=== PATIENT | male | born 1960 | race Caucasian/White ===

== ENCOUNTER 2020-03-30 00:36 | Outpatient (CLI) | payer BC, SELFPAY ==
[2020-03-30 18:12] LABS: SARS-CoV-2 RNA PCR Negative
== END 2020-03-30 00:37 | disposition home or self-care (01) ==
LOC: ANHCOVIDDT 00:36
PROVIDERS: PCP Family Medicine; Visit Provider Internal Medicine Gastroenterology
DX: Z20.828 Contact with and (suspected) exposure to other viral communicable diseases (principal); Z01.812 Encounter for preprocedural laboratory examination
CPT/HCPCS: 87635; C9803; U0003

== ENCOUNTER 2020-04-01 02:05 | Day surgery (SDC) | payer BC, SELFPAY ==
[2020-03-26 14:17] VITALS: BMI 34.5
[2020-04-01 06:52] VITALS: BMI 36.8
[2020-04-01 07:00] VITALS: BP 139/91; PULSE 82; RESP 14; TEMP 36.4; O2SAT 96
[2020-04-01] MEDS: LACTATED RINGERS 1,000 ML 150 ML IV CONT (07:12)
--- NOTE | 2020-04-01 07:26 | PM.IMHP ---
H&P: HPI History of Present Illness Chief complaint: Neoplasm Screening Narrative: Reason for visit colonoscopy. Is for pleasant gentleman is being evaluated at the request of the primary physician. Impression: Screening and surveillance colonoscopy. The patient has history colon polyps and family history colorectal cancer. Per past medical history. Recommendation: Colonoscopy. History: Very pleasant gentleman is negative GI review systems. He is here for screening and surveillance colonoscopy. He has a history colon polyps and family history colorectal cancer. Physical examination: General: very pleasant patient in no acute distress. HEENT: Head was normocephalic sclerae is clear mouth without masses neck was supple. Heart: Rate rhythm regular without S3 or S4. Lungs: CTA. Abdomen: Soft with no guarding or rigidity. Bowel sounds were active. Neurologic: Cranial nerves 2 through 12 intact. No focal defects. No clonus. Musculoskeletal system: Revealed no joint tenderness or swelling no muscle atrophy. Extremities: Reveal no significant edema. Skin: Warm and dry with normal turgor. Mental status: intact. Patient is alert and oriented. Review of Systems Review of Systems: All systems reviewed & are unremarkable except as noted in HPI and below PMFSH Past Medical History Medical History (Updated 04/01/20 @ 07:25 by Rufus Gee DO) Adenomatous colon polyp Anxiety HLD (hyperlipidemia) Obesity Surgical History Surgical History (Updated 04/01/20 @ 07:25 by Rufus Gee DO) H/O colonoscopy H/O hernia repair H/O total hip arthroplasty Bilateral Family History Family History (Updated 04/01/20 @ 07:26 by Rufus Gee DO) Father Carcinoma of colon Other Family history of arthritis Social History Social History (Updated 04/01/20 @ 07:25 by Rufus Gee DO) Smoking packs per day: 1 Smoking cigarettes per day: 20.0 Years smoked: 30 Smoking pack-years: 30.00 Alcohol intake: current Meds Home Medications and Allergies Home Medications Medication Instructions Recorded Confirmed Type acyclovir 800 mg PO DAILY 03/26/20 04/01/20 History celecoxib 200 mg PO DAILY 03/26/20 04/01/20 History clonazepam 1 mg PO DAILY 03/26/20 04/01/20 History rosuvastatin 10 mg PO DAILY 03/26/20 04/01/20 History Allergies Allergy/AdvReac Type Severity Reaction Status Date / Time No Known Allergies Allergy Verified 04/01/20 06:57 Vital Signs Vital Signs - 24 hr 04/01/20 07:00 Temperature 36.4 C Pulse Rate 82 Respiratory Rate 14 Blood Pressure 139/91 H Pulse Oximetry 96
--- NOTE | 2020-04-01 07:55 | WPDANESEPPF ---
Anes - Initial Pre Proc Eval Procedure: Operation Date: 04/01/20 08:00 Proposed Procedures p Screening Colonoscopy - Rufus Gee DO Date/Time: 04/01/20 07:55 Surgeon: Rufus Gee DO Pre Op Diagnosis: Neoplasm Screening Patient Data Age: 59 Gender: M Height: 6 ft 1 in Weight: 126.8 kg Last Vital Signs Temp 97.6 F 04/01/20 07:00 Pulse 82 04/01/20 07:00 Resp 14 04/01/20 07:00 BP 139/91 H 04/01/20 07:00 Pulse Ox 96 04/01/20 07:00 Allergies Allergy/AdvReac Type Severity Reaction Status Date / Time No Known Allergies Allergy Verified 04/01/20 06:57 Home Medications Medication Instructions Recorded Confirmed Type acyclovir 800 mg PO DAILY 03/26/20 04/01/20 History celecoxib 200 mg PO DAILY 03/26/20 04/01/20 History clonazepam 1 mg PO DAILY 03/26/20 04/01/20 History rosuvastatin 10 mg PO DAILY 03/26/20 04/01/20 History Patient hx anesthesia problems: none Family hx anesthesia problems: none PMFSH Past Medical History Medical History (Updated 04/01/20 @ 07:25 by Rufus Gee DO) Adenomatous colon polyp Anxiety HLD (hyperlipidemia) Obesity Surgical History Surgical History (Updated 04/01/20 @ 07:25 by Rufus Gee DO) H/O colonoscopy H/O hernia repair H/O total hip arthroplasty Bilateral Family History Family History (Updated 04/01/20 @ 07:26 by Rufus Gee DO) Father Carcinoma of colon Other Family history of arthritis Social History Social History (Updated 04/01/20 @ 07:25 by Rufus Gee DO) Smoking packs per day: 1 Smoking cigarettes per day: 20.0 Years smoked: 30 Smoking pack-years: 30.00 Alcohol intake: current Anes - Eval Final PreProcedure Day of Procedure 04/01/20 07:55 Patient weight: obese Heart: regular rate and rhythm Lungs: clear to auscultation Airway: Mallampati scale class III Neurological: alert and oriented Last oral intake: >/= 8 hours ASA classification: III Emergent: no Anesthetic plan: proceed Anesthesia type and monitoring: general GIVS and standard monitoring Informed Consent: The patient's anesthetic plan and its attendant risks and benefits were discussed with the patient/family/POA. Questions were solicited and answers provided to the satisfaction of the patient/family/POA.
[2020-04-01 08:28] VITALS: BP 123/67; PULSE 66; RESP 25; O2SAT 100
[2020-04-01 08:38] VITALS: BP 120/82; PULSE 73; RESP 19; O2SAT 100
[2020-04-01 08:48] VITALS: BP 122/87; PULSE 70; RESP 18; O2SAT 70
== END 2020-04-01 09:07 | disposition home or self-care (01) ==
PROVIDERS: PCP Family Medicine; Visit Provider Internal Medicine Gastroenterology
PROC: 0DJD8ZZ Inspection of Lower Intestinal Tract, Via Natural or Artificial Opening Endoscopic (ICD-10-PCS; CPT 45378; principal; 2020-04-01 08:00)
DX: Z12.11 Encounter for screening for malignant neoplasm of colon (principal); D12.3 Benign neoplasm of transverse colon; K57.30 Diverticulosis of large intestine without perforation or abscess without bleeding; K64.8 Other hemorrhoids; E78.5 Hyperlipidemia, unspecified; F41.9 Anxiety disorder, unspecified; E66.9 Obesity, unspecified; Z68.36 Body mass index [BMI] 36.0-36.9, adult; F17.210 Nicotine dependence, cigarettes, uncomplicated
CPT/HCPCS: 45380; 88305; J2704; J7120

== ENCOUNTER 2023-09-11 20:00 | Emergency (ER) | payer BC, SELFPAY ==
[2023-09-11] VITALS (8 sets, daily range): BP systolic 122–153; BP diastolic 73–98; PULSE 80–123; RESP 11–16; TEMP 36.6; O2SAT 94–99
--- NOTE | ~2023-09-11 | XR_ITS ---
EXAMINATION: XR chest 2V Exam Date/Time: 09/11/2023 20:25 LOGISTICS LOSS PREVENTION MANAGER HISTORY: cp Comparison: 12/15/2016. RESULT: Lines, tubes, and devices: None. Lungs and pleura: Clear. Cardiomediastinal silhouette: Stable. Other: No acute osseous or upper abdominal finding. IMPRESSION: No acute cardiopulmonary process. Reviewed, dictated and finalized at location K. STICS LOSS PREVENTION MANAGER
--- NOTE | 2023-09-11 20:01 | ECG_ITS ---
Measurements Intervals [place] Rate: 120 P: AL: 0 QRS: -19 QRSD: 75 T: 6 QT: 295 QTc: 418 Interpretive Statements ATRIAL FIBRILLATION WITH RAPID VENTRICULAR RESPONSE CONSIDER INFERIOR INFARCT, AGE INDETERMINATE BASELINE ARTIFACT- I, III, AVR, AVL, AVF, V1 ABNORMAL ECG NO PREVIOUS ECG AVAILABLE FOR COMPARISON Electronically Signed On 09-12-2023 6:18:32 BULK TRUCK DRIVER by Babar Larson D.O.
[2023-09-11 20:23] LABS: Basophils Absolute Auto 0.1 K/mm3 (0.0-0.1); Basophils Percent Auto 0.8 % (0.2-1.2); Eosinophils Absolute Auto 0.2 K/mm3 (0-0.3); Eosinophils Percent Auto 1.3 % (0-4.4); Hematocrit 48.7 % (42.0-52.0); Hemoglobin 16.7 g/dL (14.0-18.0); Immature Granulocyte Absolute 0.27 K/mm3 (0.00-0.031); Immature Granulocyte Percent A 2.2 % (0-0.5); Lymphocytes Absolute Auto 3.45 K/mm3 (0.9-3.2); Mean Corpuscular HGB Conc 34.3 g/dl (32-36); Mean Corpuscular Hemoglobin 30.9 pg (26-34); Mean Platelet Volume 8.7 fl (7.4-10.4); Monocytes Absolute Auto 1.2 K/mm3 (0.1-0.6); Monocytes Percent Auto 9.7 % (2.6-8.5); Neutrophils Absolute Auto 7.2 K/mm3 (1.3-6.7); Platelet Count Result 330 k/mm3 (150-375); Red Blood Count 5.41 M/mm3 (4.6-6.20); Red Cell Distribution Width 12.7 % (11.5-14.5); White Blood Count 12.3 K/mm3 (4.5-10.0)
[2023-09-11 20:33] LABS: Alanine Aminotransferase 50 U/L (6-50); Alkaline Phosphatase 80 U/L (38-126); Anion Gap 13 mmol/L (8-16); Aspartate Amino Transferase 36 U/L (17-59); Bilirubin,Total 0.5 mg/dL (0.2-1.3); Blood Urea Nitrogen 14 mg/dL (9-20); Calcium 9.6 mg/dL (8.4-10.2); Carbon Dioxide 22 mmol/L (22-30); Chloride 108 mmol/L (98-107); Estimated CRCL calculation 98 ml/min; Estimated Glomerular Filt Rate > 60; Glucose 95 mg/dL (65-110); Lipase 104 U/L (23-300); Sodium 143 mmol/L (137-145)
[2023-09-11 20:44] LABS: Troponin I < 0.012 ng/mL (0.000-0.034)
[2023-09-11 20:53] LABS: Partial Thromboplastin Time 25.4 SECONDS (22.3-36.8); Prothrombin Time 13.9 Seconds (11.1-14.7)
--- NOTE | 2023-09-11 22:32 | ECG_ITS ---
Measurements Intervals [place] Rate: 84 P: 29 WA: 166 QRS: -15 QRSD: 81 T: 62 QT: 355 QTc: 421 Interpretive Statements SINUS RHYTHM EARLY PRECORDIAL R/S TRANSITION INFERIOR INFARCT, AGE INDETERMINATE BORDERLINE T WAVE ABNORMALITY- HIGH LATERAL LEADS BASELINE ARTIFACT- AVL ABNORMAL ECG COMPARED TO ECG 09/11/2023 20:07:45 SINUS RHYTHM NOW PRESENT Electronically Signed On 09-12-2023 6:23:11 PLASTICS SUPERVISOR by Babar Larson D.O.
[2023-09-11] MEDS: ASPIRIN 81 MG CHEWABLE TABLET 324 MG PO (23:00)
--- NOTE | 2023-09-11 23:28 | PC.NURSE ---
care and report given to ADOLFO Jimenez. all questions answered.
[2023-09-11 23:46] LABS: Magnesium 2.5 mg/dL (1.6-2.3)
[2023-09-11 23:59] LABS: Troponin I < 0.012 ng/mL (0.000-0.034)
--- NOTE | 2023-09-12 00:25 | ED.GENADULT ---
HPI - General Adult General Chief complaint: Arrhythmia/Palpitations Stated complaint: palpations Time Seen by Provider: 09/11/23 22:14 History of Present Illness HPI narrative: Patient 62-year-old gentleman presents emerged for which she complained of chest discomfort and heart racing. The patient states that earlier this evening he had some stressful events that occurred in his life he noticed that his heart was beating between 100 and 120 the patient does report that recently he has had some medications from his [employer] watch that is said that he has been in atrial fibrillation and reports earlier today his [employer] watch was saying that he was in atrial fibrillation. Patient denies syncope he does report that his symptoms have been worsened whenever he stands up. Patient reports no diarrhea Related Data Home Medications Medication Instructions Recorded Confirmed rosuvastatin 10 mg tablet 10 mg PO DAILY 03/26/20 06/13/21 tamsulosin 0.4 mg capsule 0.4 mg PO DAILY 06/03/21 06/13/21 clonazepam 1 mg tablet 1 mg PO BID 07/26/23 naproxen 500 mg tablet 500 mg PO BID 07/26/23 Allergies Allergy/AdvReac Type Severity Reaction Status Date / Time No Known Allergies Allergy Verified 07/26/23 14:15 Review of Systems Review of Systems: A 10 system review of systems was completed on the patient and is negative except for what is stated in the HPI. Nursing and ancillary documentation was reviewed. [facility] Past Medical History Medical History Adenomatous colon polyp Anxiety Cold sore COPD (chronic obstructive pulmonary disease) HLD (hyperlipidemia) Obesity Surgical History Surgical History H/O colonoscopy H/O hernia repair H/O total hip arthroplasty Bilateral Family History Family History Father Carcinoma of colon Parkinsons CHF (congestive heart failure) MA (myocardial infarction) Mother Arthritis Hypertension Sibling Liver disease Unknown Heart disease Cancer Other Family history of arthritis Social History Social History Smoking packs per day: 1 Smoking cigarettes per day: 20.0 Years smoked: 30 Smoking pack-years: 30.00 Smoking status: Former smoker Tobacco type: cigarettes Alcohol intake: current Drinks per week: 6 Alcohol use details: vodka Lack of Transportation: No Lack of Food: Never True Current Housing: I Have Housing Concerned About Future Housing: No Difficulty Paying Gas/Electric Bills: No Difficulty Paying for Meds: No Currently Unemployed: No Education: Master's Degree or Higher Difficulty w/ Childcare or Family Care: No Exam Narrative: GENERAL: Well-appearing, well-nourished, and in no acute distress. HEAD: Normocephalic, atraumatic. EYES: PERRLA and EOMI. ENT: Nares clear, no rhinorrhea or epistaxis. Mucous membranes moist. NECK: Supple. CHEST: Clear to auscultation. No respiratory distress. HEART: Regular rate and rhythm. No murmur heard. Normal peripheral pulses. ABDOMEN: Soft, nontender, nondistended, normal active bowel sounds. EXTREMITIES: Normal range of motion. No edema. SKIN: Warm, dry, no rash. NEURO: No focal deficits. Alert and oriented x3. PSYCH: Normal mood and affect. Course Vital Signs Vital signs: Vital Signs Temperature 36.6 C 09/11/23 20:11 Pulse Rate 123 H 09/11/23 20:11 Respiratory Rate 16 09/11/23 20:11 Blood Pressure 153/73 H 09/11/23 20:11 Pulse Oximetry 94 09/11/23 20:11 Temperature 36.6 C 09/11/23 20:11 Pulse Rate 89 09/11/23 23:29 Respiratory Rate 13 09/11/23 23:29 Blood Pressure 137/92 H 09/11/23 23:29 Pulse Oximetry 99 09/11/23 23:29 Medical Decision Making [facility] Narrative Medical decision making n[place]
[2023-09-12 00:53] VITALS: BP 131/85; PULSE 82; RESP 14; O2SAT 98
[2023-09-12 00:54] VITALS: PULSE 82
[2023-09-12] MEDS: METOPROLOL SUCCINATE EXT REL 25 MG TABCR PO (00:54)
[2023-09-12 01:33] VITALS: BP 131/93; PULSE 99; RESP 18; O2SAT 99
== END 2023-09-12 01:34 | disposition home or self-care (01) ==
PROVIDERS: Emergency Provider Emergency Medicine; PCP Family Medicine
DX: I48.91 Unspecified atrial fibrillation (principal); F41.9 Anxiety disorder, unspecified; J44.9 Chronic obstructive pulmonary disease, unspecified; E78.5 Hyperlipidemia, unspecified
CPT/HCPCS: 36415; 71046; 80053; 83690; 83735; 84484; 85025; 85610; 85730; 93005; 99284; A9270

== ENCOUNTER 2024-03-13 11:46 | Outpatient (CLI) | payer MEDICARE, SELFPAY ==
[2024-03-13 13:28] LABS: Basophils Absolute Auto 0.1 K/mm3 (0.0-0.1); Basophils Percent Auto 0.7 % (0.2-1.2); Eosinophils Absolute Auto 0.1 K/mm3 (0-0.3); Eosinophils Percent Auto 0.8 % (0-4.4); Hemoglobin 15.4 g/dL (14.0-18.0); Immature Granulocyte Absolute 0.11 K/mm3 (0.00-0.031); Lymphocytes Absolute Auto 2.65 K/mm3 (0.9-3.2); Lymphocytes Percent Auto 24.8 % (18.3-44.2); Mean Corpuscular HGB Conc 33.5 g/dl (32-36); Mean Corpuscular Hemoglobin 30.9 pg (26-34); Mean Corpuscular Volume 92.2 fl (80-100); Mean Platelet Volume 9.5 fl (7.4-10.4); Monocytes Absolute Auto 0.9 K/mm3 (0.1-0.6); Monocytes Percent Auto 8.6 % (2.6-8.5); Neutrophils Absolute Auto 6.8 K/mm3 (1.3-6.7); Neutrophils Percent Auto 64.1 % (45.5-73.1); Platelet Count Result 273 k/mm3 (150-375); Red Blood Count 4.99 M/mm3 (4.6-6.20); Red Cell Distribution Width 12.9 % (11.5-14.5); White Blood Count 10.7 K/mm3 (4.5-10.0)
[2024-03-13 13:43] LABS: Alanine Aminotransferase 30 U/L (6-50); Albumin Level 4.5 g/dL (3.5-5.1); Alkaline Phosphatase 75 U/L (38-126); Anion Gap 6 mmol/L (4-12); Aspartate Amino Transferase 44 U/L (17-59); Bilirubin,Total 0.7 mg/dL (0.2-1.3); Blood Urea Nitrogen 18 mg/dL (9-20); Calcium 9.7 mg/dL (8.4-10.2); Carbon Dioxide 25 mmol/L (22-30); Chloride 108 mmol/L (98-107); Cholesterol 108 mg/dL (0-200); Estimated Glomerular Filt Rate > 60; Glucose 106 mg/dL (65-110); HDL Direct 43 mg/dL; Potassium 4.2 mmol/L (3.4-5.0); Sodium 139 mmol/L (137-145); Triglycerides 145 mg/dL (<150)
[2024-03-13 13:55] LABS: LDL Cholesterol Direct 57 mg/dL
[2024-03-13 14:12] LABS: Prostate Specific Antigen 0.8 ng/mL (< OR = 4.0)
== END 2024-03-13 11:47 | disposition home or self-care (01) ==
LOC: ANHGOSHLAB 11:48
PROVIDERS: PCP Emergency Medicine; Visit Provider Emergency Medicine
DX: Z12.5 Encounter for screening for malignant neoplasm of prostate (principal); E78.5 Hyperlipidemia, unspecified
CPT/HCPCS: 36415; 80053; 80061; 84153; 84443; 85025; G0103

== ENCOUNTER 2024-03-17 15:34 | Outpatient (CLI) | payer MEDICARE, SELFPAY ==
--- NOTE | ~2024-03-17 | CT_ITS ---
CT Scan of the Chest without Contrast: Clinical Indication: Lung cancer screening, nicotine dependence Technique: Contiguous sections were acquired throughout the chest without intravenous contrast. Dose reduction technique was used on this scan by utilizing automated exposure control and iterative recon struction technique. The dose-length product (DLP) was 291.78 mGy-cm. Findings: There is no evidence of any significant mediastinal, hilar or axillary lymphadenopathy. The mediastin al soft tissues appear normal. There is no evidence of pleural or pericardial effusion. The lungs are clear. No pulmonary nodules or infiltrates are noted. Images through the upper abdomen reveal no abnormalities. Impression: Lung RADS 1: Negative. 12 month follow-up screening CT advised. Reviewed, dictated and finalized at location . Impression: Lung RADS 1: Negative. 12 month follow-up screening CT advised.
== END 2024-03-17 15:35 | disposition home or self-care (01) ==
LOC: ANHIMG 15:35
PROVIDERS: PCP Emergency Medicine; Visit Provider Emergency Medicine
DX: Z12.2 Encounter for screening for malignant neoplasm of respiratory organs (principal); Z87.891 Personal history of nicotine dependence
CPT/HCPCS: 71271

== ENCOUNTER 2024-04-05 07:27 | Outpatient (CLI) | payer MEDICARE, SELFPAY ==
--- NOTE | ~2024-04-05 | MR_ITS ---
EXAMINATION: MR knee LT wo con DATE: 04/05/2024 08:12 INDICATION: Medial left knee pain and swelling TECHNIQUE: Magnetic resonance imaging (MRI) of the left knee was performed without intravenous contra st. Sequences included coronal PD-weighted FSE, coronal PD-weighted FS FSE, sagittal T2-weighted FSE , sagittal PD-weighted FS FSE and axial PD weighted fat saturated FSE. COMPARISON: None. FINDINGS: Medial compartment: There is medial extrusion of the medial meniscal body with 7 mm separation at the margins of a full-t hickness radial tear extending across the posterior horn . There is subarticular edema-like signal ch dion underlying a 13 x 10 mm region of full or near full-thickness chondral ulceration at the medial aspect of the medial tibial plateau. There is additional deep chondral fissuring with irregular conto ur to the minimal relative thinning cartilage along the medial two thirds of the anterior weightbeari ng medial femoral condyle with additional underlying subarticular edema-like signal change. Additiona l chondral ulceration involving greater than 50% the cartilage thickness but without degenerative sub chondral changes at the central to posterior weightbearing medial femoral condyle. Lateral compartment: Lateral meniscus is normal. Partial-thickness chondral fissure at the medial aspect of the lateral ti bial plateau along the shoulder the intercondylar eminence. Cartilage along the weightbearing lateral femoral condyle is normal. Patellofemoral compartment: Partial-thickness chondral fissuring without degenerative subchondral changes along the caudal third of the patellar apical ridge and lateral facet. Additional shallow chondral fissure at the central as pect of the medial patellar facet. Trochlear cartilage is normal. Ligaments and tendons: Anterior and posterior cruciate ligaments are normal. The medial collateral ligament and fibular sid ateral ligament complex are normal. The extensor mechanism is normal. The visualized medial and later al hamstring tendons as well as the iliotibial band are normal. Fluid: Moderate-sized knee joint effusion. 7 x 4 x 4 mm loose body anterior to the intercondylar notch along the medial side of the transverse ligament. Osseous/other: Bone alignment is normal. No fracture or pathologic marrow replacing process. IMPRESSION: 1. Full-thickness radial tear at the posterior horn of the medial meniscus. 2. Moderate osteoarthritis with prominent high-grade chondromalacia at the medial compartment and mil d osteoarthritis with small regions of moderate grade chondromalacia in the lateral and patellofemora l compartments. 3. Moderate sized knee joint effusion with small loose body anterior to the intercondylar notch along the transverse ligament. Reviewed, dictated and finalized at location A. IMPRESSION: 1. Full-thickness radial tear at the posterior horn of the medial meniscus. 2. Moderate osteoarthritis with prominent high-grade chondromalacia at the medi al compartment and mild osteoarthritis with small regions of moderate grade cho ndromalacia in the lateral and patellofemoral compartments. 3. Moderate sized knee joint effusion with small loose body anterior to the int ercondylar notch along the transverse ligament.
== END 2024-04-05 07:28 ==
LOC: MICIMG 07:28
PROVIDERS: PCP Emergency Medicine; Visit Provider Orthopaedic Surgery
DX: M23.322 Other meniscus derangements, posterior horn of medial meniscus, left knee (principal); M17.12 Unilateral primary osteoarthritis, left knee; M94.262 Chondromalacia, left knee; M25.462 Effusion, left knee; M23.42 Loose body in knee, left knee
CPT/HCPCS: 73721

== ENCOUNTER 2024-04-23 09:37 | Outpatient (CLI) | payer MEDICARE, SELFPAY ==
--- NOTE | ~2024-04-23 | CT_ITS ---
EXAMINATION: CT sinus wo con DATE: 04/23/2024 09:45 INDICATION: Sinusitis TECHNIQUE: Computed tomography (CT) of the paranasal sinuses was performed without intravenous contra st. The dose-length product was 401.69 mGy-cm. Automated exposure control and iterative reconstructio n technique were employed. COMPARISON: CT dated 09/04/2011 FINDINGS: There is mild mucosal thickening of the maxillary, ethmoid and right frontal sinuses. There are small mucous retention cyst of the sphenoid sinuses. No air-fluid levels. No significant nasal s eptal deviation. Mastoids are pneumatized. IMPRESSION: 1. Mild sinus disease. Reviewed, dictated and finalized at location B. IMPRESSION: 1. Mild sinus disease.
--- NOTE | ~2024-04-23 | US_ITS ---
US soft tissue abdomen Ordering provider: Parviz Payton History: . K42.9 - Umbilical hernia without obstruction or gangrene . Comparison: None. Technique: Soft tissue abdomen ultrasound. (Doppler ultrasound interrogation techniques used as neede d for this exam.) FINDINGS impression: Small slightly echogenic mass is seen in the umbilical area measuring 0.4 x 0.4 x 0.6 cm. Possibility of tiny hernia with fat content cannot be excluded. Follow-up advised. Reviewed, dictated and finalized at location A.
== END 2024-04-23 09:38 ==
LOC: GOSHIMG 09:38
PROVIDERS: PCP Emergency Medicine; Visit Provider Emergency Medicine
DX: J32.9 Chronic sinusitis, unspecified (principal); K42.9 Umbilical hernia without obstruction or gangrene
CPT/HCPCS: 70486; 76705

== ENCOUNTER 2024-11-11 07:56 | Outpatient (CLI) | payer MEDICARE, SELFPAY ==
--- OUTSIDE RECORDS SUMMARY | 2024-11-11 08:04 | XMS_ITS | Clinical Summary ---
Author Organization [facility] [place] [address] Address [address] [place] [address] Care Team Providers Care Interchange Agent Name Role Phone Parviz Payton MD Primary Care Provider [phone] Allergies No known active allergies Medications rosuvastatin (CRESTOR) 10 mg tabletIndicati ons:hyperlipid emia Take 1 tablet (10 mg total) by mouth nightly 10/10/20 23 Active tamsulosin (FLOMAX) 0.4 mg extended release capsuleIndicat ions:benign prostatic hyperplasia with lower urinary tract sx Take 1 capsule (0.4 mg total) by mouth nightly 09/11/20 23 Active aspirin 81 mg enteric coated tabletIndicati ons:prevention of thrombosis Take 1 tablet (81 mg total) by mouth nightly Active MULTIVITAMIN ORALIndication s:supplent Take 1 tablet/capsul e by mouth nightly Active omega-3 fatty acids-fish oil 300-1,000 mg capsuleIndicat ions:supplemen t Take 2 capsules (2 g total) by mouth nightly Active HYDROcodone-ac etaminophen (NORCO) 5-325 mg per tabletIndicati ons:Pain Take 1 tablet by mouth every 6 (six) hours as needed for pain for up to 15 doses 15 tablet 08/20/20 24 Active sodium chloride (OCEAN) 0.65 % nasal spray Administer 1 spray into each nostril as needed for rhinitis 15 mL 08/20/20 24 025 Active pramipexole (MIRAPEX) 0.5 mg tabletIndicati ons:Restless Legs Syndrome Take 1 tablet (0.5 mg total) by mouth nightly 90 tablet 1 09/01/20 24 Active metoprolol XL (TOPROL-XL) 25 mg extended release tablet Take 1 tablet by mouth once daily 90 tablet 2 09/09/20 24 Active zolpidem (AMBIEN) 5 mg tablet TAKE 1 TABLET BY MOUTH NIGHTLY NEEDED FOR SLEEP 30 tablet 5 09/16/20 24 Active ergocalciferol (VITAMIN D) 50,000 unit capsule Take 1 capsule by mouth once a week 4 capsule 11/10/19 25 Active ergocalciferol (VITAMIN D) 50,000 unit capsule Take 1 capsule by mouth once a week 4 capsule 09/19/20 24 024 Discontinued(Re order) ergocalciferol (VITAMIN D) 50,000 unit capsule Take 1 capsule by mouth once a week 4 capsule 10/14/20 24 025 Discontinued Active Problems Problem Noted Date Diagnosed Date Hypertrophy of both inferior nasal turbinates Nasal valve stenosis 07/03/2024 Periodic limb movement disorder 03/20/2024 Restless legs syndrome 03/20/2024 Psychophysiological insomnia 03/20/2024 Obesity (BMI 35.0-39.9 without comorbidity) 01/2024 MAGAN (obstructive sleep apnea) 10/18/2023 Stress 10/18/2023 PAF (paroxysmal atrial fibrillation) ([facility]) 0 10/18/2023 Hypertrophy of breast 02/28/2014 Overview (01/17/2017): HYPERTROPHY OF BREAST Encounters Date Type Department Care Team Description 10/28/2024 4:30 PM CLERGY MEMBER Office Visit [facility]) - [facility] E[facility] [address] [facility] Medical Office Building [address] [place] [address] Bettye Torres MD S/P nasal surgery (Primary Dx); MAGAN (obstructive sleep apnea); Impacted cerumen of both ears 09/04/2024 10:00 AM CLERGY MEMBER [facility] - [facility] ENT [address] [facility] 11th [place] [address] [place] [address] Bettye Torres MD S/P nasal surgery (Primary Dx); MAGAN (obstructive sleep apnea); Psychophysiological insomnia; Nasal valve stenosis 09/04/2024 Telephone [facility] ([facility]) - [facility] ENT [address] [facility] Advanced [facility] 11th [place] [address] [place] [phone] Antoinette Isbell MS 08/20/2024 3:50 PM CLERGY MEMBER - 08/20/2024 5:25 PM CLERGY MEMBER Surgery [facility] [address] [place] [address] Bettye Torres MD REPAIR NASAL VALVE 08/20/2024 2:37 PM CLERGY MEMBER Anesthesia Event [facility] ([facility]) [address] [place] [address] Anish Ness MD DDS Dulle, Alison Renee, SIS 08/20/2024 1:15 PM CLERGY MEMBER - 08/20/2024 4:55 PM CLERGY MEMBER Hospital Encounter [facility] ([facility]) [address] [place] [address] Bettye Torres MD Hypertrophy of both inferior nasal turbinates (Primary Dx); Nasal valve stenosis Discharge Disposition: Discharge to home or self care from Last 3 Months Surgical History Surgery Date Site/Laterality Comments UMBILICAL HERNIA REPAIR 2010 Hernia repair HIP ARTHROPLASTY 04/14/2014 - 05/14/2014 Right CARPAL TUNNEL RELEASE 10/15/2022 - 10/14/2023 Right HIP ARTHROPLASTY 09/14/2014 - 10/14/2014 Left Medical History Medical History Date Comments Hyperlipidemia Hyperlipidemia Hx Other Medical MAGAN ( ? ) Hx Other Medical restless leg sy ndrome Family History Medical History Relation Name Comments Hypertension Father Hypertension; Parkinsonism Father Atrial fibrillation Mother Cancer Mother Liver disease Sister Relation Name Status Comments Father Mother Sister Social History Tobacco Use Types Packs/Day Years Used Date Smoking Tobacco: Former Cigarettes - 2010 Passive Smoke Exposure: Past Tobacco Cessation:Counseling Given: Not Answered Alcohol Use Standard Drinks/Week Comments No 0 (1 standard drink = 0.6 oz pur e alcohol) AUDIT-C Answer Date Recorded Q1: How often do you have a drink containing alc ohol? 2-3 times a week 08/20/2024 Q2: How many drinks containi ng alcohol do you have on a typical day when you are drinking? 1 or 2 08/20/2024 Q3: How often do you have si x or more drinks on one occasion? Never 08/20/2024 Personal Safety Answer Date Recorded Have you ever been in or are you currently in a harmful physical or emotional relationship or is someone making you feel afraid or unsafe? Denies 08/20/2024 Sex and Gender Information Value Date Recorded Sex Assigned at Not on file Legal Sex Male 10:23 AM CLERGY MEMBER Gender Identity Not on file Sexual Orientation Not on file Obstetrics History Last Filed Vital Signs Vital Sign Reading Time Taken Comments Blood Pressure 135/78 08/20/2024 4:40 PM CLERGY MEMBER Pulse 66 08/20/2024 4:40 PM CLERGY MEMBER Temperature 36.2 ??C (97.2 ??F) 08/20/2024 4:00 PM CS T Respiratory Rate 15 08/20/2024 4:40 PM CLERGY MEMBER Oxygen Saturation 96% 08/20/2024 4:40 PM CLERGY MEMBER Inhaled Oxygen Concentration - - Weight 124.7 kg (275 lb) 10/28/2024 4:21 PM CLERGY MEMBER Height 188 cm (6' 2 ) 10/28/2024 4:21 PM CLERGY MEMBER Body Mass Index 35.31 10/28/2024 4:21 PM CLERGY MEMBER Plan of Treatment Health Maintenance Due Date Last Done Comments Colon Cancer Screening-Colonoscopy 1958 Depression Screening 1958 Hepatitis C Screening 1958 Prostate Cancer Screening-PSA 1958 DTaP/Tdap/Td Vaccine (1 - Tdap) 1969 Hepatitis B Screening 1976 Lung Cancer Screening 2008 Zoster Vaccine (1 of 2) 2008 Abdominal Aortic Aneurysm (AAA) Screen 2023 Pneumococcal vaccine 65+ (1 of 1 - PCV) 2023 Well Visit 65+ 2023 Covid-19 Vaccine (3 - season) 06/15/202402/2022, 07/29/2021 Influenza Vaccine (#1) 2024 08/03/2022, 2020 Fall Risk Assessment 08/20/2025 08/20/2024 Procedures Procedure Name Priority Date/Time Associated Diagnosis Comments ANESTHESIA INTUBATION Routine 08/20/2024 3:06 PM CLERGY MEMBER REDUCTION INFERIOR TURBINATE 08/20/2024 2:36 PM CLERGY MEMBER MAGAN (obstructive sleep apnea) Nasal valve stenosis Special Needs DR TORRES HAS REQUESTED 30 MINS FOR CASE/2 WEEK POST OP/NEEDS SINUS SCOPES AND VIVAER-REP REPAIR NASAL VALVE 08/20/2024 2: 36 PM CLERGY MEMBER MAGAN (obstructive sleep apnea) Nasal valve stenosis Special Needs DR TORRES HAS REQUESTED 30 MINS FOR CASE/2 WEEK POST OP/NEEDS SINUS SCOPES AND VIVAER-REP from Last 3 Months Results * Airway (08/20/2024 3:06 PM CLERGY MEMBER) Narrative Wilian Isaac MD - 08/20/2024 3:06 PM CLERGY MEMBER Wilian Isaac MD ? 08/20/2024 ??3:07 PM Airway Patient location: OR Urgency: elective Indications for airway management: anesthesia Difficult airway: no Staff: Supervising provider: Anish Ness MD DDS Placed by: Resident: Wilian Isaac MD Airway prep: Preoxygenated: yes Patient position: sniffing Mask difficulty assessment: 2 - vent by mask + OA or adjuvant Spontaneous ventilation during airway: absent Sedation level during airway: GA Final airway details: Final airway type: endotracheal airway Tube type: ETT ETT size: 8.0 mm Cuffed: yes Technique used for successful ETT placement: video laryngoscopy Devices/Methods used in placement: stylet Insertion site: oral Blade type: Coco Video blade type: Ortiz Blade size: 4 Cormack-Lehane (video): grade I - full view of glottis Initial cuff pressure: 25 cm H2O Cuff inflated with: air ETT to gums: 23 cm Placement verified by: auscultation and CO2 detection Airway secured with: silk tape Number of attempts: 1 Planned trial extubation: yes us Anish Ness MD, DDS ANESTHESIA ORDERABLES Cece sol Result from Last 3 Months Insurance MEDICARE [facility] SUPP MEDICARE [facility] Care Teams Interchange Agent Relationship Specialty Start Date End Date Parviz Payton MD [address] [facility] [place], [place] [id number] PCP - General Family Medicine 07/17/24
--- OUTSIDE RECORDS SUMMARY | 2024-11-11 08:04 | XMS_ITS | Referral Summary ---
Author Organization [facility] [place] [address] Address [address] [place] [address] Care Team Providers Care Dry Color Mixer Name Role Phone Parviz Payton MD Primary Care Provider [phone] Encounters Date Type Department Care Team Description 10/28/2024 4:30 PM RAILWAY SIGNAL OPERATOR Office [facility] ENT [address] [facility] Medical Office Building [address] [place] [phone] Bettye Torres MD S/P nasal surgery (Primary Dx); MAGAN (obstructive sleep apnea); Impacted cerumen of both ears 09/04/2024 10:00 AM RAILWAY SIGNAL OPERATOR [facility]) - [facility] ENT [address] [facility] Advanced [facility] 11th [place] [address] [place] [phone] Bettye Torres MD S/P nasal surgery (Primary Dx); MAGAN (obstructive sleep apnea); Psychophysiological insomnia; Nasal valve stenosis 09/04/2024 Telephone [facility] ([facility]) [place] ENT [address] [facility] Advanced Medicine 11th [place] [address] [place] [phone] Antoinette Isbell MS 08/20/2024 3:50 PM RAILWAY SIGNAL OPERATOR - 08/20/2024 5:25 PM RAILWAY SIGNAL OPERATOR Surgery [facility]) [address] [place] [address] Bettye Torres MD REPAIR NASAL VALVE 08/20/2024 2:37 PM RAILWAY SIGNAL OPERATOR Anesthesia Event [facility] ([facility]) [address] [place] [address] Anish Ness MD DDS Dulle, Alison Renee, NP 08/20/2024 1:15 PM RAILWAY SIGNAL OPERATOR - 08/20/2024 4:55 PM RAILWAY SIGNAL OPERATOR Hospital Encounter [facility] ([facility]) [address] [place] [address] Bettye Torres MD Hypertrophy of both inferior nasal turbinates (Primary Dx); Nasal valve stenosis Discharge Disposition: Discharge to home or self care from Last 3 Months Allergies No known active allergies Medications rosuvastatin [...] 10/18/2023 Stress 10/18/2023 PAF (paroxysmal atrial fibrillation) ([facility]) 0 10/18/2023 Hypertrophy of breast 02/28/2014 Overview (01/17/2017): HYPERTROPHY OF BREAST Social History Tobacco Use Types Packs/Day Years Used Date Smoking Tobacco: Former Cigarettes 1 25 1 6 - 2010 Passive Smoke Exposure: Past Tobacco [...] on file Legal Sex Male 10:23 AM RAILWAY SIGNAL OPERATOR Gender Identity Not on file Sexual Orientation Not on file Last Filed Vital Signs Vital Sign Reading Time Taken Comments Blood Pressure 135/78 08/20/2024 4:40 PM RAILWAY SIGNAL OPERATOR Pulse 66 08/20/2024 4:40 PM RAILWAY SIGNAL OPERATOR Temperature 36.2 ??C (97.2 ??F) 08/20/2024 4:00 PM CS T Respiratory Rate 15 08/20/2024 4:40 PM RAILWAY SIGNAL OPERATOR Oxygen Saturation 96% 08/20/2024 4:40 PM RAILWAY SIGNAL OPERATOR Inhaled Oxygen Concentration - - Weight 124.7 kg (275 lb) 10/28/2024 4:21 PM RAILWAY SIGNAL OPERATOR Height 188 cm (6' 2 ) 10/28/2024 4:21 PM RAILWAY SIGNAL OPERATOR Body Mass Index 35.31 10/28/2024 4:21 PM RAILWAY SIGNAL OPERATOR Plan of Treatment Not on file Procedures Procedure Name Priority Date/Time Associated Diagnosis Comments ANESTHESIA INTUBATION Routine 08/20/2024 3:06 PM RAILWAY SIGNAL OPERATOR REDUCTION INFERIOR TURBINATE 08/20/2024 2:36 PM RAILWAY SIGNAL OPERATOR MAGAN (obstructive sleep apnea) Nasal valve stenosis Special Needs DR TORRES HAS REQUESTED 30 MINS FOR CASE/2 WEEK POST OP/NEEDS SINUS SCOPES AND VIVAER-REP REPAIR NASAL VALVE 08/20/2024 2: 36 PM RAILWAY SIGNAL OPERATOR MAGAN (obstructive sleep apnea) Nasal valve stenosis Special Needs DR TORRES HAS REQUESTED 30 MINS FOR CASE/2 WEEK POST OP/NEEDS SINUS SCOPES AND VIVAER-REP from Last 3 Months Results * Airway (08/20/2024 3:06 PM RAILWAY SIGNAL OPERATOR) Narrative Wilian Isaac MD - 08/20/2024 3:06 PM RAILWAY SIGNAL OPERATOR Wilian Isaac MD ? 08/20/2024 ??3:07 PM [...] placement: stylet Insertion site: oral Blade type: Ccoo Video blade type: Ortiz Blade size: 4 Cormack-Lehane (video): grade I - full view of glottis Initial cuff pressure: 25 cm H2O Cuff inflated with: air ETT to gums: 23 cm Placement verified by: auscultation and CO2 detection Airway secured with: silk tape Number of attempts: 1 Planned trial extubation: yes us Anish Ness MD DDS ANESTHESIA ORDERABLES Cece sol Result from Last 3 Months Insurance MEDICARE [facility] MEDICARE [facility] SUPP Care Teams Dry Color Mixer Relationship Specialty Start Date End Date Parviz Payton MD [address] [facility] [place] [address] PCP - General Family Medicine 07/17/24
--- OUTSIDE RECORDS SUMMARY | 2024-11-11 08:04 | XMS_ITS | Clinical Summary ---
Author Organization [facility] Address [address] [facility] [address] [place] [address] Phone Care Team Providers Care Insurance Defense Attorney Name Role Phone Shelby Posey MD Primary Care Provider [phone] Social History Tobacco Use Types Packs/Day Years Used Date Smoking Tobacco: Never Assessed Sex and Gender Information Value Date Recorded Sex Assigned at Not on file Legal Sex Male 9:31 AM CDT Gender Identity Not on file Sexual Orientation Not on file Plan of Treatment Health Maintenance Due Date Last Done Comments Hepatitis C Virus (HCV) Screening 1960 TdaP Immunization 1960 Cologuard 2008 Immunochemical Fecal Occult Blood 2008 Pneumococcal Immunization (5 0+ years) (1 of 1 - PCV) 2008 Zoster Immunization (1 of 2) 2008 PSA Discussion 2013 Influenza Immunization (#1) 2024 SARS-COV-2 Immunization (2 - season) 2024 07/29/2021 Colonoscopy 04/01/2025 04/01/2020 Colorectal Cancer Screening 04/01/2025 Respiratory Syncytial Virus (RSV) Immunization (Adult) (1 - 1-dose 75+ series) 2033 04/01/2020 Hepatitis B Immunization Aged Out No longer eligible based on patient's age to complete this topic Meningococcal Immunization (ACWY) Aged Out No longer eligible based on patient's age to complete this topic Rotavirus Immunization Aged Out No lo nger eligible based on patient's age to complete this topic Procedures Procedure Name Priority Date/Time Associated Diagnosis Comments COLONOSCOPY Routine 04/01/2020 from Last 3 Months or Most Recently Relevant to Health Maintenance Results * COLONOSCOPY (04/01/2020) Rufus Gee DO PROCEDURE/MINOR SURGICAL ORDERA BLES Edited Result - Final from Last 3 Months or Most Recently Relevant to Health Maintenance Insurance [facility] Care Teams Insurance Defense Attorney Relationship Specialty Start Date End Date Shelby Posey MD [address] [place] [address] [place] [address] PCP - General Paper Winder 12/25/19
[2024-11-11 14:43] LABS: Alanine Aminotransferase 38 U/L (6-50); Albumin Level 4.3 g/dL (3.5-5.1); Alkaline Phosphatase 77 U/L (38-126); Anion Gap 9 mmol/L (4-12); Aspartate Amino Transferase 42 U/L (17-59); Bilirubin,Total 0.7 mg/dL (0.2-1.3); Blood Urea Nitrogen 15 mg/dL (9-20); Calcium 9.6 mg/dL (8.4-10.2); Carbon Dioxide 25 mmol/L (22-30); Chloride 105 mmol/L (98-107); Estimated Glomerular Filt Rate > 60; Glucose 91 mg/dL (65-110); Potassium 4.2 mmol/L (3.4-5.0); Sodium 139 mmol/L (137-145)
[2024-11-11 18:34] LABS: Hemoglobin A1C 5.6 % (<5.7)
== END 2024-11-11 07:57 | disposition home or self-care (01) ==
LOC: ANHGOSHLAB 07:57
PROVIDERS: PCP Internal Medicine; Visit Provider Clinical Nurse Specialist
DX: R73.9 Hyperglycemia, unspecified (principal); G25.81 Restless legs syndrome
CPT/HCPCS: 36415; 80053; 82728; 83036

== ENCOUNTER 2025-01-07 07:58 | Outpatient (CLI) | payer MEDICARE, SELFPAY ==
--- OUTSIDE RECORDS SUMMARY | 2025-01-07 08:05 | XMS_ITS | Clinical Summary ---
Author Organization [facility] [place] [address] Address [address] [place] [phone] Care Team Providers Care Aircraft Structure Mechanic Name Role Phone Parviz Payton MD Primary Care Provider [phone] Allergies No known active allergies Medications rosuvastatin (CRESTOR) 10 mg tabletIndication s:hyperlipidemia Take 1 tablet (10 mg total) by mouth nightly 3 Active tamsulosin (FLOMAX) 0.4 mg extended release capsuleIndicatio ns:benign prostatic hyperplasia with lower urinary tract sx Take 1 capsule (0.4 mg total) by mouth nightly 3 Active aspirin 81 mg enteric coated tabletIndication s:prevention of thrombosis Take 1 tablet (81 mg total) by mouth nightly Active MULTIVITAMIN ORALIndications: supplent Take 1 tablet/capsule by mouth nightly Active omega-3 fatty acids-fish oil 300-1,000 mg capsuleIndicatio ns:supplement Take 2 capsules (2 g total) by mouth nightly Active HYDROcodone-acet aminophen (NORCO) 5-325 mg per tabletIndication s:Pain Take 1 tablet by mouth every 6 (six) hours as needed for pain for up to 15 doses 15 tablet 4 Active sodium chloride (OCEAN) 0.65 % nasal spray Administer 1 spray into each nostril as needed for rhinitis 15 mL 4 08/20/20 25 Active pramipexole (MIRAPEX) 0.5 mg tabletIndication s:Restless Legs Syndrome Take 1 tablet (0.5 mg total) by mouth nightly 90 tablet 1 4 Active metoprolol XL (TOPROL-XL) 25 mg extended release tablet Take 1 tablet by mouth once daily 90 tablet 2 4 Active zolpidem (AMBIEN) 5 mg tablet TAKE 1 TABLET BY MOUTH NIGHTLY NEEDED FOR SLEEP 30 tablet 5 4 Active ergocalciferol (VITAMIN D) 50,000 unit capsule Take 1 capsule by mouth once a week 4 capsule Active Active Problems Problem Noted Date Diagnosed Date Hypertrophy of both inferior nasal turbinates Nasal valve stenosis 07/03/2024 Periodic limb movement disorder 03/20/2024 Restless legs syndrome 03/20/2024 Psychophysiological insomnia 03/20/2024 Obesity (BMI 35.0-39.9 without comorbidity) 01/2024 MAGAN (obstructive sleep apnea) 10/18/2023 Stress 10/18/2023 PAF (paroxysmal atrial fibrillation) 10/18/2023 Hypertrophy of breast 02/28/2014 Overview (01/17/2017): HYPERTROPHY OF BREAST Encounters Date Type Department Care Team Description 10/28/2024 4:30 PM ELECTRICAL ACCESSORIES I ASSEMBLER Office Visit [facility]) - [facility] ENT [address] [facility] Medical Office Building [address] [place] [address] Bettye Palacio MD S/P nasal surgery (Primary Dx); MAGAN (obstructive sleep apnea); Impacted cerumen of both ears from Last 3 Months Surgical History Surgery [...] on file Legal Sex Male 10:23 AM ELECTRICAL ACCESSORIES I ASSEMBLER Gender Identity Not on file Sexual Orientation Not on file Obstetrics History Last Filed Vital Signs Vital Sign Reading Time Taken Comments Blood Pressure 135/78 08/20/2024 4:40 PM ELECTRICAL ACCESSORIES I ASSEMBLER Pulse 66 08/20/2024 4:40 PM ELECTRICAL ACCESSORIES I ASSEMBLER Temperature 36.2 C (97.2 F) 08/20/2024 4:00 PM ELECTRICAL ACCESSORIES I ASSEMBLER Respiratory Rate 15 08/20/2024 4:40 PM ELECTRICAL ACCESSORIES I ASSEMBLER Oxygen Saturation 96% 08/20/2024 4:40 PM ELECTRICAL ACCESSORIES I ASSEMBLER Inhaled Oxygen Concentration - - Weight 124.7 kg (275 lb) 10/28/2024 4:21 PM ELECTRICAL ACCESSORIES I ASSEMBLER Height 188 cm (6' 2 ) 10/28/2024 4:21 PM ELECTRICAL ACCESSORIES I ASSEMBLER Body Mass Index 35.31 10/28/2024 4:21 PM ELECTRICAL ACCESSORIES I ASSEMBLER Plan of Treatment Health Maintenance Due Date Last Done Comments Colon Cancer Screening-Colonoscopy 1958 Depression Screening 1958 Hepatitis C Screening 1958 Prostate Cancer Screening-PSA 1958 DTaP/Tdap/Td Vaccine (1 - Tdap) 1969 Hepatitis B Screening 1976 Lung Cancer Screening 2008 Pneumococcal vaccine 65+ (1 of 1 - PCV) 2008 Zoster Vaccine (1 of 2) 2008 Abdominal Aortic Aneurysm (AAA) Screen 2023 Well Visit 65+ 2023 Covid-19 Vaccine (3 - season) 06/15/202402/2022, 07/29/2021 Influenza Vaccine (#1) 2024 08/03/2022, 2020 Fall Risk Assessment 08/20/2025 08/20/2024 Insurance MEDICARE [facility] MEDICARE [facility] Care Teams Aircraft Structure Mechanic Relationship Specialty Start Date End Date Parviz Payton MD [address] [facility] [place] [address] PCP - General Family Medicine 07/17/24
--- OUTSIDE RECORDS SUMMARY | 2025-01-07 08:05 | XMS_ITS | Referral Summary ---
Author Organization [facility] [place] [address] Address [address] [place] [phone] Care Team Providers Care Home Appliance Washing Machine Mechanic Name Role Phone Parviz Payton MD Primary Care Provider [phone] Encounters Date Type Department Care Team Description 10/28/2024 4:30 PM EMERGENCY MEDICAL SERVICE MANAGER Office Visit [facility]) - [facility] ENT [id number] [place] [address] Medical Office Building [address] [place] [address] Bettye Palacio MD S/P nasal surgery (Primary Dx); MAGAN (obstructive sleep apnea); Impacted cerumen of both ears from Last 3 Months Allergies No known [...] for up to 15 doses 15 tablet 11/06/202 4 Active sodium chloride (OCEAN) 0.65 % [...] by mouth once a week 4 capsule 5 Active Active Problems Problem Noted Date Diagnosed [...] Smoking Tobacco: Former Cigarettes 1 25 1 986 - 2010 Passive Smoke Exposure: Past Tobacco [...] on file Legal Sex Male 10:23 AM EMERGENCY MEDICAL SERVICE MANAGER Gender Identity Not on file Sexual Orientation Not on file Last Filed Vital Signs Vital Sign Reading Time Taken Comments Blood Pressure 135/78 08/20/2024 4:40 PM EMERGENCY MEDICAL SERVICE MANAGER Pulse 66 08/20/2024 4:40 PM EMERGENCY MEDICAL SERVICE MANAGER Temperature 36.2 C (97.2 F) 08/20/2024 4:00 PM EMERGENCY MEDICAL SERVICE MANAGER Respiratory Rate 15 08/20/2024 4:40 PM EMERGENCY MEDICAL SERVICE MANAGER Oxygen Saturation 96% 08/20/2024 4:40 PM EMERGENCY MEDICAL SERVICE MANAGER Inhaled Oxygen Concentration - - Weight 124.7 kg (275 lb) 10/28/2024 4:21 PM EMERGENCY MEDICAL SERVICE MANAGER Height 188 cm (6' 2 ) 10/28/2024 4:21 PM EMERGENCY MEDICAL SERVICE MANAGER Body Mass Index 35.31 10/28/2024 4:21 PM EMERGENCY MEDICAL SERVICE MANAGER Plan of Treatment Not on file Insurance MEDICARE [facility] MEDICARE [facility] Care Teams Home Appliance Washing Machine Mechanic Relationship Specialty Start Date End Date Parviz Payton MD [address] [facility] [place] [address] PCP - General Family Medicine 07/17/24
--- OUTSIDE RECORDS SUMMARY | 2025-01-07 08:06 | XMS_ITS | Clinical Summary ---
Author Organization [facility] Address [address] [facility] [address] [place] [address] Phone Care Team Providers Care Passenger Tire Builder Name Role Phone Shelby Posey MD Primary Care Provider Social History Tobacco Use Types Packs/Day Years [...] Immunization (#1) 2024 SARS-COV-2 Immunization (2 - 2023- season) 2024 07/29/2021 Colonoscopy 04/01/2025 04/01/2020 Colorectal [...] Most Recently Relevant to Health Maintenance Insurance [facility] Care Teams Passenger Tire Builder Relationship Specialty Start Date End Date Shelby Posey MD [address] [place] [address] [place] [address] PCP - General Citrix Administrator 12/25/19
--- OUTSIDE RECORDS SUMMARY | 2025-01-07 08:06 | XMS_ITS | Data Portability ---
Author Organization [place] [facility], Main Office Address [address] [place] [address] Assessment Encounter Date Assessment Date Assessment LastModified by Organization Details LastModified Time 05/23/2023 05/23/2023 HPI: 62-year-old male came in today for evaluation of his left shoulder pain. He has been having pain on off for about a year. Two months ago he picked up a large concrete basket that he has in the yd. When he said it down he felt more pain in the left shoulder. Not feel a pop or tearing sensation. It has been sore since that time. He has pain abducting the arm. He feels a catch type sensation when he is lowering the arm from an overhead position. Patient does not feel that it is getting any better over last 2 months. He has been cautious with use of it to try to get it quiet down. Physical exam: 62-year-old male very alert pleasant. He is well developed deltoids. He has active elevation to 145 external rotation is to 65 internal rotation is to L1. Subscap lift-off is intact. He has negative abdominal compression test. He has bqqf-om-fijxwtpc weakness with external rotation as well as abduction in the left arm. No pain with strength testing. No tenderness over the AC joint. When his arm was overhead and I was lowering it he felt a catch at about 80 . It was painful. 2+ radial pulse. Neck range of motion causes no discomfort. Impression: 62-year-old male who has weakness in the left shoulder and most likely has at least a medium size rotator cuff tear which is going to be more a chronic tear rather than acute. I think he probably aggravated this with his episode 2 months ago. I discussed options with him his for his treatment with this he would like to proceed with an MRI scan to have a good idea of the tear and then rediscuss options at that point. We will plan to set up the MRI scan and see him back afterwards. 20 minutes was spent in treatment patient more half of this in gqza-av-gmrt conversation [email or web address] Not available 05/23/2023 09:22:51 06/08/2023 06/08/2023 mpression: Patient has a small higher grade partial-thickness interstitial tear at the insertion of the upper infraspinatus. I have discussed options with him. I have given him an illustrated sheet those treating the anatomy and illustrating his particular partial-thickness tear. I have discussed with him that his symptoms may improve with non operative measures. He has vbkh-fj-qxvlocbf weakness with external rotation as well as abduction his strength may improve if his comfort level improves substantially. I would recommend a course of physical therapy for him to optimize the kinematics of the shoulder and I would recommend medication decrease inflammation. I have prescribed a Medrol Dosepak following a Medrol Dosepak at would recommend 4 weeks of naproxen 500 mg twice daily. Possible side effects were discussed. If he has resolution of his symptoms observation be appropriate. If he does not improve, rotator cuff repair would be an option we have discussed that. Cortisone injection is another consideration but typically, this provides only temporary relief and may weaken the integrity of the rotator cuff tendon somewhat. Since he is less than 65 I would lean against that but focus on other nonsurgical strategies to improve his symptoms. I will see him back in 6 weeks to assess progress. 30 minutes were spent in total care this patient more than half the time spent in pyge-bf-xzgt care. [email or web address] Not available 06/18/2023 19:37:04 07/20/2023 07/20/2023 HPI: Patient returns. He is here for follow-up of his left shoulder. He took a Medrol Dosepak. He is taking the naproxen 500 mg once or twice a day. He tends to forget about the 2nd dose due to the fact he is not really having any symptoms during the day. He takes the 1 does usually always at night. At this point he wakes with a little bit of stiffness and soreness in the shoulder but this quickly dissipates. He has no real symptoms during the day. He thinks that the Medrol Dosepak really made a difference in his overall pain quality. At this point he is having minimal to no symptoms in the shoulder. 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 He has elevation to 145 external rotation 80 internal rotation is to T12. He has no pain with range of motion and no tenderness about shoulder. 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 At this point his symptoms are extremely minimal and very tolerable. We talked about avoiding activities particularly overhead activities and activities with the arm outstretched as this is going to put more stress on the rotator cuff tendon. He should continue with his home exercise program on a regular basis. He will continue with the naproxen as needed. I advised him that if we keep him on the prescription dose naproxen we will get blood work at 3 months and every 6 months after that. This point we will see him back as needed. 20 minutes was spent treatment patient more than half of this in frha-vz-jxjb conversation [email or web address] Not available 07/20/2023 10:16:54 12/26/2023 12/26/2023 HPI: 63-year-old male came in today for evaluation of his left knee pain. Pain started in early November when he was out walking the dog. He did not have any fall or trauma that started the pain. He just started noticing that the knee was getting sore. After this incident he went to [place] and walked every day for about a week there in the knees got little bit more painful. All of his pain is medial in the knee. He is having no catching or locking. He does take occasional ibuprofen which seems to help with his symptoms but does not like to take medication on a regular basis. Physical exam: 63-year-old male devin mercado. He has a moderate effusion in left knee. No redness or warmth. Range of motion is from 0-135. Vbwq-ki-maskowar tenderness over the medial joint line to palpation. No lateral joint line tenderness. Minimal patellofemoral grind. No increased swelling lower extremities. After Betadine and alcohol prep 20 mg Kenalog and 3 cc of 0.5% ropivacaine was injected into the left knee. Impression: 63-year-old male who has spvf-dd-qloptvet medial compartment osteoarthritis. Most likely I think he aggravated this with walking the dog and then continued aggravated with his trip to [facility]. He is having no mechanical symptoms in the knee so I do not think this represents a meniscal tear. He had similar symptoms in the right knee in the past and had a cortisone injection and had complete resolution of his symptoms since that time. He wished to have an injection today. He tolerated the injection well. If he does not get satisfactory improvement he will call next step would be to obtain an MRI scan of the knee. Shots could be repeated in the future, every 3 months as needed, 20 minutes was spent treatment patient with more than half of this in helv-py-udap conversation [email or web address] Not available 12/26/2023 16:00:42 Plan of Treatment Reminders Order Date Submit Date Provider Last Modified By Organization Details Last Modified Time Details Appointments None recorded. Lab None recorded. Referral physical therapist referral 2022 023 [email or web address] [facility] [place] [place] [facility], [address], [place], [address], 3 10:14:53 Procedures injection/a spiration joint/bursa (PROC) - in office procedure, administere d by provider 2023 024 [email or web address] In-Office Order, Internal Use Only DO Not Attach Compendium DO Not Attach Compendium, Do Not Delete/merge, [id number] 4 15:35:43 Surgeries None recorded. Imaging XR, knee 2023 024 [email or web address] [facility] [place], [address], [place], [address], 4 16:11:38 XR, shoulder 2022 023 [email or web address] [facility] [place], [address], [place], [address], 3 14:31:39 Medication Orders Kenalog 10 mg/mL suspension for injection 2023 024 [id number] [place] [address] Pharmacy 4878, [address] [place], [address], 4 01:04:44 ropivacaine (PF) 5 mg/mL (0.5 %) injection solution 2023 024 [id number] [address] [facility], [address] [place], [place], [address], 4 01:04:44 Medrol (Randolph) 4 mg tablets in a dose pack 2022 023 [facility], [address] [place], [place], [address], 3 09:43:14 Naprosyn 500 mg tablet 2022 023 [email or web address] 11 [facility], [address] [place] [place], [place], [address], 3 14:15:26 Patient TargetsNo targets recorded. Patient InstructionsNo instructions recorded. Reason for Referral Physical Therapist Referral for Pain of left shoulder joint Referring Physician: Gonzalez Sanchez, Orthopedic Surgery, Encounter Date: 06/08/2023 Results Created Date Observation Date Name Description Value Unit Range Abnormal Flag Note LastModifiedBy Organization Detail LastModifiedTime 05/23/20 23 XR, shoul tee No observ ation record ed. [email or web address] [facility] [place] [address], [place], [address], 05/23/2023 09:20:08 06/01/20 23 MRI, shoul tee, w/o contr ast [facility] [address] [place] [address] Yana joseph Name: MATHIEU RECINOS Access ion #: [id number] Sex: M : 1959 6 Dictat ed By: Angella crawford Attend ing Physic regina: GONZALEZ HAQ Physic regina: GONZALEZ HAQ Exam Date: 2022 09:29 AM Exam Name: MRI SHOULD ER LT WO Admitt ing Diagno sis(es ): CLINIC AL INFORM ATION: Left should er pain. Weakne ss and limite d range of motion . Injury 2-3 months ago. TECHNI SEKOU INFORM ATION: Multis equenc e multip lanar MRI images of the left should er were obtain ed withou t contra st. COMPAR ANNELIESE: None. INTERP RETATI ON: Acromi oclavi cular joint: There is modera te acromi oclavi cular hypert rophy and modera te edema. There is type I acromi on. Small to modera te amount of fluid in the subacr omial/ subdel toid bursa. Rotato r cuff: Mild tendin osis of the distal supras pinatu s and infras pinatu s tendon s. Partia l-thic kness inters titial tear of the infras pinatu s tendon measur ing up to 7 mm in AP dimens ion and up to 9 mm proxim al to distal dimens ion, involv ing slight ly greate r than 50% of the tendon thickn ess. Subsca pulari s and teres minor tendon s are intact . Biceps tendon : Modera te tenosy noviti s of the long head biceps tendon at the level of the bicipi jannette groove . Labrum : No labral tear identi fied. Bones: No fractu re or focal marrow contus ion. Muscle s: Normal muscle bulk. No atroph y. Other: No other signif icant findin gs. CONCLU ANDERSON: 1. Rotato r cuff tendin osis with inters titial tear in the distal infras pinatu s tendon . 2. Modera te acromi oclavi cular hypert rophy with mild to modera te subacr omial/ subdel toid bursit is. 3. Biceps tenosy noviti s. Electr onical ly Signed by: Angella crawford at 2022 14:50: 55 PM Page 1 [email or web address] [facility] (Imaging) [address] [place], [address], 06/04/2023 09:03:28 09/11/20 23 09/11/2023 XR, chest , 2 view No observ ation record ed. [email or web address] [place] [address] [address], [place], [address], 09/12/2023 09:34:53 12/26/19 24 XR, knee No observ ation record ed. [email or web address] [facility] [place] [address], [place], [address], 12/26/2023 15:58:35 Result Notes None recorded. Problems Name Problem SNOMED Code Status Onset Date Resolution Date Notes Provider Name and Address Organization Details Recorded Time Carpal tunnel syndrome 59551077 Active 2022 Not Available [facility] 3 17:35:39 Multiple joint pain 77892578 Active 2022 Not Available [facility] 3 17:35:39 Pain of bilateral hands 7789187256102 9109 Active 2022 Not Available [facility] 3 17:35:39 Neck pain 87411252 Active 2022 Not Available [facility] 3 17:35:39 Bilateral carpal tunnel syndrome 7898156445446 9101 Active 2022 Not Available [facility] 3 17:35:39 Carpal tunnel syndrome 56862611 Active 2022 MINNA Verdugo null, [employer] [facility] 3 14:21:54 Pain of left shoulder joint 2613468998019 9109 Active 2022 MINNA Verdugo null, [employer] [facility] [employer] 3 08:58:58 Pain of right shoulder joint 1755807054601 9100 Active 2022 Cheri Curiel CMA null, [employer] [facility] 3 16:30:22 Partial thickness rotator cuff tear 121398908 Active 2022 MINNA Verdugo null, [employer] [facility] 3 09:44:35 Pain of left knee joint 3652348875642 07 Active 2023 Savanah Najera, JAEL null, [place] [facility] 4 14:54:09 Rectal hemorrhage 33945071 Active Not Available [facility] 3 17:35:39 Respirator y symptom 374384547 Active Not Available [facility] 3 17:35:39 Blood glucose outside reference range 657760701 Active Not Available [facility] 3 17:35:39 Insomnia 135893275 Active Not Available [facility] 3 17:35:39 Osteoarthr itis of hip 862579977 Active Not Available [facility] 3 17:35:39 Knee pain Active Not Available [facility] 3 17:35:39 Umbilical hernia 608596339 Active Not Available [facility] 3 17:35:39 Chronic sinusitis 99087346 Active Not Available [facility] 3 17:35:39 Recurrent herpes simplex labialis 910724064 Active Not Available [facility] 3 17:35:39 Multiple lipomata 698358149 Active Not Available [facility] 3 17:35:39 Hematochez ia 992753169 Active Not Available [facility] 3 17:35:39 Olecranon bursitis 910507105 Active Not Available [facility] 3 17:35:39 Anxiety 75901517 Active Not Available [facility] 3 17:35:39 Hyperlipid emia 32528048 Active Not Available [facility] 3 17:35:39 Essential hypertensi on 12297887 Active Not Available [facility] 3 17:35:39 Dyspnea on exertion 58035411 Active Not Available [facility] 3 17:35:39 Tinnitus 32012643 Active Not Available [facility] 3 17:35:39 Chronic rhinitis 18986634 Active Not Available [facility] 3 17:35:39 Problem Notes None recorded. Procedures Surgical History Date Name Laterality Status Provider Name and Address Organization Details Recorded Time 03/15/20 20 Colonoscopy completed Yessica Jean RN [place] [facility] 02/27/2023 15:29:48 total replacement of hip completed Not Available [facility] 12/13/2022 04:43:50 Imaging Results Imaging Date Name Status LastModified by Organiz ation Details LastModified Time 05/23/2023 XR, shoulder completed [email or web address] [facility] [place] [address], [place], [address], 05/23/2023 09:20:08 06/01/2023 MRI, shoulder, w/o contrast completed [address] (Imaging) [address] [place], [address], 06/04/2023 09:03:28 09/11/2023 XR, chest, [address], [place], [address], 09/12/2023 09:34:53 12/26/2023 XR, knee completed [email or web address] [facility] [place] [address], [place], [address], 12/26/2023 15:58:35 Procedure Notes None recorded. Medical Equipment None Reported. Allergies No known drug allergies Medications Name Sig Start Date Stop Date Status Note LastModified by Organization Details LastModified Time celecoxib 200 mg capsule Take 1 capsule twice a day by oral route as needed. 03/09 completed Not Available Not Available Not Available trazodone 50 mg tablet 12/23 completed Not Available Not Available Not Available hydrocodone 5 mg-acetamin ophen 325 mg tablet TAKE 1 TABLET BY MOUTH EVERY 4 HOURS 05/23 completed Not Available Not Available Not Available Doc-Q-Lace 100 mg capsule TK ONE C PO BID WITH FOOD 12/08 completed Not Available Not Available Not Available clonazepam 1 mg tablet Take 1 tablet by mouth twice daily as needed 2023 active Not Available Not Available Not Avai lable phentermine 37.5 mg tablet TAKE 1 TABLET BY MOUTH ONCE DAILY active Not Available Not Available No t Available sildenafil 100 mg tablet Take 1 tablet every day by oral route. 03/09 completed Not Available Not Available Not Available acyclovir 800 mg tablet TAKE 1 TABLET BY MOUTH TWICE DAILY NEEDED 03/09 completed Not Available Not Available Not Available oxycodone-a cetaminophe n 5 mg-325 mg tablet 12/08 completed Not Available Not Available Not Available amoxicillin 875 mg tablet TAKE 1 TABLET BY MOUTH TWICE DAILY UNTIL GONE 09/26 completed Not Available Not Available Not Available tamsulosin 0.4 mg capsule TAKE 1 CAPSULE BY MOUTH AT BEDTIME active Not Available Not Available No t Available Kenalog 10 mg/mL suspension for injection Take 2 mL by injection route. 2023 active [facility]: [phone] Not Available Not Available Not Available cephalexin 500 mg capsule TAKE 1 CAPSULE BY MOUTH EVERY 6 HOURS 05/23 completed Not Available Not Available Not Available oseltamivir 75 mg capsule TAKE ONE CAPSULE BY MOUTH TWICE A DAY 12/22 completed Not Available Not Available Not Available metoprolol succinate ER 25 mg tablet,exte nded release 24 hr TAKE 1 TABLET BY MOUTH ONCE DAILY IN THE MORNING active Not Available Not Available No t Available ergocalcife rol (vitamin D2) 1,250 mcg (50,000 unit) capsule TAKE 1 CAPSULE BY MOUTH ONCE A WEEK active Not Available Not Available No t Available Cheratussin AC 10 mg-100 mg/5 mL oral liquid TAKE 5 ML ( 1 TEASPOONF UL) BY MOUTH EVERY 4 HOURS NEEDED 02/27 completed Not Available Not Available Not Available levofloxaci n 500 mg tablet TAKE 1 TABLET BY MOUTH EVERY DAY FOR 10 DAYS 02/27 completed Not Available Not Available Not Available methylpredn isolone 4 mg tablets in a dose pack TAKE BY MOUTH DIRECTED ON INSIDE OF PACKAGE 07/20 completed Not Available Not Available Not Available fluticasone propionate 50 mcg/actuati on nasal spray,suspe nsion SPRAY 2 SPRAYS IN EACH NOSTRIL ONCE DAILY 12/22 completed Not Available Not Available Not Available naproxen 500 mg tablet TAKE 1 TABLET BY MOUTH TWICE DAILY WITH FOOD 09/26 completed Not Available Not Available Not Available amoxicillin 875 mg-potassiu m clavulanate 125 mg tablet TAKE 1 TABLET BY MOUTH EVERY 12 HOURS FOR 10 DAYS active Not Available Not Available No t Available dutasteride 0.5 mg capsule TAKE 1 CAPSULE BY MOUTH ONCE DAILY 03/09 completed Not Available Not Available Not Available Ciprodex 0.3 %-0.1 % ear drops,suspe nsion INSTILL 4 DROPS INTO BY right ear ROUTE 2 TIMES PER DAY FOR 10 days 10/26 completed Not Available Not Available Not Available rosuvastati n 10 mg tablet Take 1 tablet by mouth once daily active Not Available Not Available No t Available lidocaine (PF) 10 mg/mL (1 %) injection solution In office injection administe red by the provider 09/28 completed [facility]: [phone] Not Available Not Available Not Available Suprep Bowel Prep Kit 17.5 gram-3.13 gram-1.6 gram oral solution active Not Available Not Available Not Available Xarelto 10 mg tablet 12/08 completed Not Available Not Available Not Available ropivacaine (PF) 5 mg/mL (0.5 %) injection solution Take 3 mL by injection route. 2023 active [facility] [phone] -[phone] Not Available Not Available Not Available Myrbetriq 25 mg tablet,exte nded release Take 1 tablet every day by oral route. 03/09 completed Not Available Not Available Not Available Vitals Date Recorded Body height Provider Name an d Address Organization Details Last Updated DateTime 05/23/2023 182.88 cm Arely Forde [employer] 05/23/2023 08:57:31 Date Recorded Body height Body mass index (BMI) Body weight Provider Name and Address Organization Details Last Updated DateTime 06/08/2023 182.88 cm 35.1 kg/m2 613770.42 g Savanah SanchezJAEL ornelas [employer] 06/08/2023 09:29:56 Date Recorded Body height Provider Name an d Address Organization Details Last Updated DateTime 07/20/2023 182.88 cm Arely Forde [facility] [employer] 07/20/2023 09:43:06 Date Recorded Body height Body mass index (BMI) Body weight Body temperature Heart rate Oxygen saturation Oxygen saturation in Arterial blood by Pulse oximetry Systolic blood pressure Diastolic blood pressure Provider Name and Address Organization Details Last Updated DateTime 182.88 cm 35.5 kg/m2 257861. 2 g 97.5 [degF] 91 /min 97 % 97 % 130 mm[Hg] 76 mm[Hg] Lexie Messina MA [facility] 14:14:37 Date Recorded Body height Provider Name an d Address Organization Details Last Updated DateTime 12/26/2023 182.88 cm Savanah Najera CNA [facility] 12/26/2023 14:53:31 Social History Question Answer Notes LastModified by Organizat ion Details LastModified Time Tobacco Smoking Status Former Smoker 1ppd Alexandra Tran osorio, [facility] [employer] 09/26/2023 14:09:07 What Is Your Level Of Alcohol Consumption? Moderate [id number] Information not available 12/13/2022 In The 14 Days Before Symptom Onset, Have You Had Close Contact With A Laboratory-confir med COVID-19 While That Case Was Ill? No Information not available 09/26/2023 In The 14 Days Before Symptom Onset, Have You Had Close Contact With A Person Who Is Under Investigation For COVID-19 While That Person Was Ill? 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 6-10yearssinc elastcigarett e [email or web address] Information not available 09/26/2023 What Is Your Current Pack Years? 30ormorepacky ears [email or web address] Information not available 09/26/2023 How Many Years Have You Smoked Tobacco? 35 Off And On [email or web address] Information not available 09/26/2023 Have You Recently Traveled Abroad? No [email or web address] Information not available 09/26/2023 Sex: Unknown Functional Status None recorded. Mental Status None recorded. Family History Relationship Description Onset Age of this Age Resolved Age Notes LastModified by Organization Details LastModified Time Sister Disease of liver [email or web address] Not available 09/26 14:09:07 Father Parkinson's disease [email or web address] Not available 09/26 14:09:07 Father Malignant tumor of colon [email or web address] Not available 09/26 14:09:07 Father Congestive heart failure [email or web address] Not available 09/26 14:09:07 Father Myocardial infarction [id number] Not available 12/13/2022 04:43:52 Medical History Condition Response URINARY/BLADDER/KIDNEY PROBLEMS Y Past Encounters Encounter ID Performer Location Encounter Start Date Encounter Closed Date Diagnosis/Indication Diagnosis SNOMED-CT Code Diagnosis ICD10 Code Diagnosis Note [id number] [facility] [place] [address] 01/24/2021 00:00:00 01/24/2021 16:10:43 [id number] [facility] [place] [address] 05/26/2021 00:00:00 05/26/2021 20:32:39 [id number] [facility] [place] [address] [facility] [address] [place] [address] 08/03/2021 00:00:00 08/03/2021 16:47:56 [id number] [facility] [place] [address] 09/28/2021 00:00:00 09/28/2021 19:49:14 [id number] [facility] [place] [address] 02/27/2023 11:02:33 02/27/2023 11:36:30 Adult health examination 641958840 Z00.00 Hyperlipidemia 70807130 E78.5 Ex-cigarette smoker 2810 39903 Z87.891 Screening for malignant neoplasm of colon 678853791 Z12.11 Carpal vincenzo xander syndrome 35063712 G56.00 Use cock up splints will send to ortho. Screening for malignant neoplasm of prostate [id number] Z12.5 Multiple joint pain [id number] M25.50 [id number] Gonzalez Sanchez MD [facility] [place] [address] [place] [address] 03/09/2023 11:19:11 03/13/2023 10:01:18 Pain of bilateral hands [id number] M79.641 M79.642 [id number] Gonzalez Sanchez MD [facility] [place] [address] [place] [address] 04/11/2023 09:43:08 04/16/2023 09:51:48 Pain of bilateral hands [id number] M79.641 M79.642 [id number] Gonzalez Sanchez MD [facility] [place] [address] [place] [address] 05/14/2023 14:15:12 05/14/2023 15:10:53 Carpal tunnel syndrome [id number] G56.03 [id number] NEEL Madison [facility] [place] [address] [place] [address] 05/23/2023 08:46:30 05/23/2023 09:24:57 Pain of left shoulder joint [id number] M25.512 [id number] Gonzalez Sanchez MD [facility] [place] [address] [place] [address] 06/08/2023 09:14:48 06/19/2023 10:14:52 Pain of left shoulder joint [id number] M25.615 [id number] NEEL Madison [facility] [place] [address] [place] [address] 07/20/2023 09:40:33 07/20/2023 11:00:03 Partial thickness rotator cuff tear [id number] M75.009 [id number] NEEL Tello [facility] Liss kong [address] [facility] [place] [address] 09/26/2023 14:05:58 09/26/2023 14:42:58 Anxiety [id number] F41.9 Carpal vincenzo xander syndrome [id number] G56.03 Essential hypertension [id number] I10 Hyperlipidemia 25789474 E78.5 Osteoarthritis of hip 23 [id number] M16.9 [id number] NEEL Madison [facility] [place] [address] [place] [address] 12/26/2023 14:37:54 12/26/2023 16:11:37 Pain of left knee joint [id number] 48231 M25.562 Health Concerns Section Related Observation LastModified by Organization Detai ls LastModified Time None Recorded Concern Status LastModified by Organization Details LastModified Time None Recorded Advance Directives Directive None Recorded Payers Encounter Date Sequence Insurance Name Policy Number Policy [place] Covered Member ID [place] Member ID Guarantor Name 05/23/2023 2 [place] [id number] 00 Rahel L Brasel [id number] Mathieu L Brasel 06/08/2023 2 [place] [id number] 00 Rahel L Brasel [id number] Mathieu L Brasel 07/20/2023 2 [place] [id number] 00 Rahel L Brasel [id number] Mathieu L Brasel 09/26/2023 2 [place] [id number] 00 Rahel L Brasel [id number] Mathieu L Brasel 09/26/2023 1 [place] Mathieu L Brasel [id number] Mathieu L Brasel 12/26/2023 1 [place] Mathieu L Brasel [id number] Mathieu L Brasel 12/26/2023 2 [employer] (MEDICARE SUPPLEMENT) Mathieu L Brasel [id number] Mathieu L Brasel Notes Date Note Type Note Provider Name and Address Organization Details Recorded Time 06/08/2023 text/html MRI scan left sh oulder is reviewed. Is high-grade interstitial partial-thickness tear approximately 7.5 mm anterior to posterior at the anterior aspect of infraspinatus footprint. This is well seen on images 70 1-19 and 70 1-20.. Also on coronal image series 1001 and 701, images 19 and 20 show higher grade cartilage loss central medial humeral head. Small effusions. Moderate tenosynovitis long head of the biceps sheath, small to moderate amount of fluid in the subacromial space. Acromioclavicular joint hypertrophy moderate. Type 1 acromion. I reviewed the MRI images with the patient. Again the x-rays of his left shoulder from May 23 were normal. He notes that he feels similar symptoms in the right shoulder but much milder much less frequent. He notes that since grade school he has always slept for 2 hours a night on a carpeted floor. It helps him fall asleep that seems to help with his history of restless legs. Thinks this might aggravate his shoulder somewhat. I Gonzalez Sanchez MD [address], [facility] [address], [place], [address], [email or web address] 06/18/2023 19:37:18 09/26/2023 text/html 2 artificial hip s , right carpal tunnel repair NEEL Tello [address], [place], [address], [email or web address] [facility] 10/08/2023 15:54:29
--- NOTE | 2025-02-02 09:12 | P.SLEEP_ITS ---
Sleep Study Date of Study: 01/07/25 Ordering Provider: Natacha Black DO Interpreting Physician: Natacha Black DO Sleep Study Type: CPAP Titration Height: 1.88 m Weight: 120.202 kg Body Mass Index: 34.0 Neck Circumference (inches): 18.5 Mcallister: 7 Reason for Sleep Study He had an Apnea [facility] home sleep test on 12/20/2023 that showed an overall AHI of 20.9 with desaturation down to 84%. He spent 9 minutes with an SpO2<88%. He had a CPAP Titration done on 01/24/2024 that found BPAP 13/9 cm H2O as optimal pressure. PLMI of 60.6. Patient was prescribed autoBPAP with IPAPmax of 14, EPAP 7, PS 4 cm. Pressure settings were changed to 13/9 cm H2O based on compliance data. Sleep History The patient is a 64-year-old male that had a CPAP titration study ordered by his sleep medicine physician due to difficulty tolerating BPAP. the patient rarely awakens from sleep short of breath. He denies awakening at night with heartburn, belching or cough. He occasionally snores but is rarely loud enough that others complain. He frequently has trouble sleeping when he has a cold. He rarely wakes up gasping for air throughout the night. He rarely has breathing problems at night observed by himself or others. He denies sweating excessively at night. He denies having heart palpitations or irregular heartbeats during the night. He rarely falls asleep during the day but never while driving. He denies sleep paralysis, cataplexy and hypnagogic/ hypnopompic hallucinations. He rarely has trouble at school or work due to sleepiness. He denies feeling afraid of going to sleep. He denies having nightmares. He occasionally remembers his dreams. He frequently has thoughts racing through his mind. He rarely feels sad or depressed. He occasionally has anxiety. He denies having muscular tension. He occasionally notices parts of his body jerk. He frequently kicks during the night. He frequently has crawling and aching feelings in his legs and frequently has leg pain during the night. He denies a wakening with morning jaw pain. He is frequently bothered by pain during the day but rarely awakened by pain during the night. He frequently wakes up feeling stiff in the morning. He frequently wakes up with sore achy muscles. He frequently wakes up with pain in the neck, spine joints. He goes to bed at 10:30 p.m. on both weekdays and weekends. The amount time it takes for him to fall asleep is variable. He wakes up 4 times throughout the night to adjust his position. The amount of time it takes for the patient to fall back asleep is variable. He wakes up between 4-5 a.m. on both weekdays and weekends. He typically gets 4-6 hours of sleep per night. He will stay in bed for 20 minutes after waking up in the morning. He currently lives with his . He denies consuming any caffeinated beverages within 2 hours of bedtime. He denies engaging in physical exercise before bedtime. He denies reading and watching television before falling asleep. He denies taking naps in afternoon or evening. He consumes 2 caffeinated beverages per day. He quit smoking cigarettes 13 years ago. He will have 1 alcoholic beverage per day at most. He denies recreational drug use [facility] Past Medical History Medical History Atrial fibrillation, controlled MAGAN (obstructive sleep apnea) Carpal tunnel syndrome of right wrist COPD (chronic obstructive pulmonary disease) Cold sore Obesity Adenomatous colon polyp Anxiety HLD (hyperlipidemia) Surgical History Surgical History H/O sinus surgery H/O hernia repair H/O colonoscopy H/O total hip arthroplasty Bilateral Family History Family History Father Carcinoma of colon Parkinsons CHF (congestive heart failure) [place] (myocardial infarction) Mother Arthritis Hypertension Sibling Liver disease Unknown Heart disease Cancer Other Family history of arthritis Social History Social History Smoking packs per day: 1 Smoking cigarettes per day: 20.0 Years smoked: 30 Smoking pack-years: 30.00 Smoking status: Former smoker Tobacco type: cigarettes Alcohol intake: current Drinks per week: 6 Alcohol use details: vodka Substance use type: does not use Do You Feel Safe in your Home?: Yes Lack of Transportation: No Lack of Food: Never True Current Housing: I Have Housing Concerned About Future Housing: No Difficulty Paying Gas/Electric Bills: No Difficulty Paying for Meds: No Currently Unemployed: No Education: Master's Degree or Higher Difficulty w/ Childcare or Family Care: No Living arrangements: with family Occupation/Education: retired Medications Home Medications ?Medication ?Instructions ?Recorded ?Confirmed ?Type tamsulosin 0.4 mg capsule 0.4 mg PO DAILY 06/03/21 01/15/25 History metoprolol succinate 25 mg 25 mg PO DAILY #30 tabs 09/12/23 01/15/25 Rx tablet,extended release 24 hr (Toprol XL) ergocalciferol (vitamin D2) 1,250 1,250 mcg PO WEEKLY 03/19/24 01/15/25 History mcg (50,000 unit) capsule aspirin 81 mg tablet,delayed 81 mg PO DAILY 09/02/24 01/15/25 History release (Adult Low Dose Aspirin) rosuvastatin 10 mg tablet 10 mg PO DAILY #90 tabs 10/21/24 01/15/25 Rx zolpidem 5 mg tablet 5 mg PO QHS #30 tabs 11/17/24 01/15/25 Rx pramipexole 0.75 mg tablet 0.75 mg PO QHS #90 tabs 01/01/25 01/15/25 Rx tirzepatide (weight loss) 7.5 7.5 mg (0.5 mL) subcut WEEKLY #2 mL 01/31/25 Rx mg/0.5 mL subcutaneous pen injector Sleep Procedure A full night CPAP Titration using the [employer] multi-channel system recorded the standard physiologic parameters including EEG, EOG, submentalis EMG, anterior tibialis EMG, EKG, body position, nasal and oral airflow using nasal pressure sensor and thermistor.? Respiratory parameters of chest and abdominal movements were recorded with Respiratory Inductance Plethysmography belts. Oxygen saturation was recorded by pulse oximetry. Video monitoring was also performed. Sleep stages, periodic limb movements, and EEG arousals were scored in 30 second epochs according to the criteria of the AASM Scoring Manual. The Apnea-Hypopnea Index was calculated using CMS guidelines for definition of hypopnea with 4% O2 desaturations while scoring respiratory events. Sleep Architecture The total recording time was 385.0 minutes.? The total sleep time was 252.0 minutes. Sleep latency was 6.9 minutes. REM latency was 67.5 minutes. Sleep efficiency was 65.5%. The patient had 24 awakenings for an awakening index of 5.7. Wake after Sleep Onset time was 126.0 minutes. The patient spent 18.0 minutes, 7.1% of total sleep time in Stage N1. The patient spent 196.5 minutes, 78.0% in Stage N2. The patient spent 0.0 minutes, 0.0% in Stage N3. The patient spent 37.5 minutes, 14.9% in Stage REM. Respiratory Analysis The patient had 36 hypopneas, 4 mixed apneas, and 1 central apnea for an overall Apnea Hypopnea Index of 9.8 events per hour. The REM Apnea Hypopnea Index was 24.0. The NREM Apnea Hypopnea Index was 7.3. The patient had a Central Apnea Hypopnea Index of 0.2. There was no evidence of Jorge-Dong Respirations. The patient was started on CPAP 9 cm H2O and titrated to CPAP 15 cm H2O due to hypopneas. The patient was able to fall asleep starting on CPAP 9 cm H2O. The patient was able to achieve REM sleep starting on CPAP 9 cm H2O. On CPAP 11 cm H2O, the patient spent 62.5 minutes in NREM and 4 minutes in REM with 7 hypopneas, resulting in an AHI (4% desat) of 6.3. Arousals There were 43 total arousals for an arousal index of 10.2. There were 33 spontaneous arousals for an index of 7.9. ?There were 9 arousals due to respiratory events for an index of 2.1. There were 0 arousals due to periodic limb movements for an index of 0.? There were 1 arousals due to isolated limb movements for an index of 0.2. Periodic Limb Movements The patient had 18 isolated limb movements with an index of 4.3. The patient had 0 periodic limb movements with index of 0. Patient had a total of 18 limb movements with a total limb movement index of 4.3. Oximetry Data The patient had an average oxygen saturation of 93.6% in sleep with a minimum oxygen saturation of 83.0% and a maximum oxygen saturation of 98.0%. The patient had 42 oxygen desaturations that were 4% or greater resulting in an Oxygen Desaturation Index of 10.0.? The patient spent 5.3 minutes, 1.5% of total sleep time with an oxygen saturation below 88%. Snoring Profile Mild snoring was present rarely throughout the study. Cardiac Profile The EKG showed normal sinus rhythm with frequent PVCs. The patient had an average pulse rate of 64.2 bpm with a minimum pulse rate of 53.0 bpm and a maximum pulse rate of 81.0 bpm. ? EEG Profile No signs of seizure activity seen. Assessment and Plan Assessment and Plan (1) MAGAN (obstructive sleep apnea): Code(s): G47.33 - Obstructive sleep apnea (adult) (pediatric) Status: Acute Assessment and Plan: The patient was started on CPAP 9 cm H2O and titrated to CPAP 15 cm H2O due to hypopneas. I recommend that the patient's pressure settings be changed to 11 cm H2O with EPR of 2 using a size medium Resmed F20 full face mask. This should be used with all episodes of sleep.? Compliance should be reviewed within 31-90 days of starting therapy for usage greater than 4 hours per night greater than 70% of the nights. The patient should be asked about symptoms such as?excessive daytime sleepiness, quality of sleep, decreased nocturia, increased?mental functioning such as memory, mood, and concentration. Data The data obtained during this sleep study is adequate for interpretation. Certification This sleep study has been reviewed by a board certified sleep medicine physician.
[2025-02-02 10:27] VITALS: BMI 34.0
== END 2025-01-08 05:48 | disposition home or self-care (01) ==
LOC: ANHCSM 07:59
PROVIDERS: PCP Internal Medicine; Visit Provider Family Medicine
DX: G47.33 Obstructive sleep apnea (adult) (pediatric) (principal)
CPT/HCPCS: 95811